=== PATIENT | female | born 1975 | race Caucasian/White ===

== ENCOUNTER 2020-07-10 10:50 | Outpatient (CLI) | payer MEDICAID, SELFPAY ==
--- NOTE | 2020-07-10 11:00 | US_ITS ---
WS: [id number] RIGHT UPPER QUADRANT ULTRASOUND HISTORY: ABN RESULTS OF LIVER FUNCTION STUDIES COMPARISON: None available. Liver: 17.3 cm in length. Mildly enlarged liver with moderate coarsened echotexture changes of hepati c steatosis. No bile duct dilatation. Gallbladder: Normally distended gallbladder with no stones or wall thickening. CBD: 0.3 cm Pancreas: Tail is not visualized. Body and head are normal. Right kidney: 12.2 cm in length. Normal size and echogenicity. No hydronephrosis or mass. Aorta and IVC: Unremarkable abdominal aorta and IVC. No ascites. US/US gall bladder [id number] IMPRESSION: 1. Mild hepatomegaly with moderate hepatic steatosis. 2. Negative gallbladder.
== END 2020-07-10 10:51 | disposition home or self-care (01) ==
LOC: RAD 10:55
PROVIDERS: Visit Provider Nurse Practitioner Family
DX: R94.5 Abnormal results of liver function studies (principal); C22.0 Liver cell carcinoma; R16.0 Hepatomegaly, not elsewhere classified; K76.0 Fatty (change of) liver, not elsewhere classified
CPT/HCPCS: 76705